=== PATIENT | male | born 1960 | race African-American/Black ===

== ENCOUNTER 2017-01-30 23:06 | Inpatient (IN) | payer OTHER ==
--- NOTE | ~2017-01-30 | HP ---
Unit #: [id number] #: [id number] Patient: BRUCE HIGUERA [id number] [place] [address] [id number] I MR#: [id number] NAME: BRUCE HIGUERA ROOM: [facility] Age: 56 Sex: M Admission Date: 01/30/2017 : 1960 Attending Physician: Reshma Escalante M.D. Admitting Physician: Reshma Escalante M.D. Primary Care Physician: Primary Care Physician No HISTORY AND PHYSICAL HISTORY OF PRESENT ILLNESS Bruce is a 56 year old admitted to [address] [place] [address] with depression and verbalizing wanting to hurt himself. He has had other admissions to this facility for the same. PAST MEDICAL HISTORY 1. Morbid obesity. 2. Diabetes mellitus. 3. High blood pressure. 4. Hypothyroidism. 5. Obstructive sleep apnea. 6. Hyperlipidemia. 7. COPD. PAST SURGICAL HISTORY 1. Left elbow and hand. 2. Bilateral eyes. ALLERGIES Haldol, Prolixin, lactose, lisinopril. SOCIAL HISTORY He denies cigarettes, alcohol and illicit drug use. FAMILY HISTORY Medically noncontributory. REVIEW OF SYSTEMS CONSTITUTIONAL: No fever or chills. HEENT: Denies any sore throat, ear pain or runny nose. CARDIOVASCULAR: Denies chest pain, irregular heart rhythm or palpitations. CHEST: Denies shortness of breath or cough. No hemoptysis. GASTROINTESTINAL: Denies nausea, vomiting, diarrhea or chronic constipation. ENDOCRINE: Denies history of increased thirst or urination. No recent significant weight loss or gain. GENITOURINARY: Denies dysuria, frequency, or hematuria. SKIN: Denies any rashes. HEMATOLOGIC: Denies history of increased bleeding or bruising. MUSCULOSKELETAL: Denies any hot, swollen joints. No generalized muscle pain. NEUROLOGIC: Denies problems with vision or speech. No frequent, severe headaches. No numbness, tingling or weakness in any extremities. Denies Unit #: [id number] #: [id number] Patient: BRUCE HIGUERA loss of bladder or bowel control. CURRENT MEDICATIONS 1. Synthroid 0.188 mg daily. 2. Depakote ER 500 mg q.a.m., 1000 mg q.h.s. 3. Abilify 30 mg daily. 4. Januvia 25 mg q.a.m. 5. Coreg 6.25 mg b.i.d. 6. Zyban SR 150 mg b.i.d. 7. Desyrel p.r.n. 8. Milk of Magnesia p.r.n. 9. Maalox p.r.n. 10. Tylenol p.r.n. PHYSICAL EXAMINATION GENERAL: Alert, morbidly obese, in no apparent distress. VITAL SIGNS: Blood pressure 146/94, heart rate 80, respirations 16, temperature 98.6. WEIGHT: 297. HEIGHT: 6 feet 4 inches. SKIN: Warm and dry without rash or lesion. HEENT: Normocephalic. TMs not viewed. Oral and nasal passages clear. Conjunctivae clear. PERRLA. EOMs intact. NECK: Supple without lymphadenopathy or thyromegaly. HEART: Regular rate and rhythm without murmur. LUNGS: Clear. ABDOMEN: Soft, nontender. : Not done. EXTREMITIES: No evidence of cyanosis, clubbing or edema. Moves all without focal deficit. NEUROLOGICAL: Grossly within normal limits. Cranial Nerves: II: Visual engle are intact. III, IV AND : Extraocular movements are intact. Pupils are equal, round and reactive to light. V: Facial sensation is grossly normal. VII: Facial movements and expression are normal. VIII: Auditory acuity grossly intact. IX, X: Uvula is midline. Phonation is normal. XI: Patient shrugs shoulders and turns head normally. XII: Tongue protrudes in the midline. Sensory and Motor Function: Sensory and motor sensation is grossly normal. Motor: moves all extremities well. Coordination: Gait is normal. Deep Tendon Reflexes: Intact. IMPRESSION Psychiatric admission. RECOMMENDATIONS PSYCHIATRIC: Per psychiatrist. MEDICAL: See no contraindications to participate in facility's activities. MEDICAL PROGNOSIS Good. MEDICAL CONDITION Stable. Unit #: [id number] #: [id number] Patient: BRUCE HIGUERA Dictated by... Fanny Torres P.A.-C. for Nakul Barron/yuliana TD: 01/31/2017 20:01 JOB #: [id number] HISTORY AND PHYSICAL Page 1 of 1 X Fanny Torres HISTORY AND PHYSICAL
--- NOTE | ~2017-01-30 | PN ---
Unit #: [id number] #: [id number] Patient: BRUCE DURANT [id number] [facility] [address] [place] [address] [id number] I MR#: [id number] NAME: BRUCE DURANT ROOM: [facility] Age: 56 Sex: M Admission Date: 01/30/2017 : 1960 Attending Physician: Reshma Escalante M.D. Admitting Physician: Reshma Escalante M.D. Primary Care Physician: Primary Care Physician Lexi CALI PROGRESS NOTES DATE OF SERVICE 02/02/2017 DISCUSSION Ms. Durant is a 56-year-old male who was seen today. Chart was reviewed and case was discussed with the staff. He has been anxious and withdrawn though has not shown any agitation or irritability and has been cooperative with treatment recommendations as he has been taking the medications and tolerating them fairly well with no reported side effects. MENTAL STATUS EXAMINATION Middle-aged male who is casually dressed with fair personal hygiene, appears to be in no acute distress or discomfort. He was awake and alert on interaction with intact orientation. His mood is anxious and depressed with congruent affect. His speech is slow and goal-directed. He denies any suicidal or homicidal ideations and also denies any auditory or visual hallucinations. His insight and judgment remain slightly impaired. TREATMENT PLAN 1. We will continue him on his current medications and treatment protocol. We will monitor his response to the medications and make further adjustments as needed. 2. We will continue to follow up. Dictated by... Nakul Mario/riog TD: 02/02/2017 12:41 JOB #: [id number] Unit #: [id number] #: [id number] Patient: BRUCE DURANT PROGRESS NOTES Page 1 of 1 X Reshma Escalante MD X PROGRESS NOTE
--- NOTE | ~2017-01-30 | PA ---
Unit #: [id number] #: [id number] Patient: BRUCE HIGUERA [id number] [facility] [address] [place] [address] [id number] Reymundo MR#: [id number] NAME: BRUCE HIGUERA ROOM: [facility] Age: 56 Sex: M Admission Date: 01/30/2017 : 1960 Date of Assessment: 01/31/2017 Attending Physician: Reshma Escalante M.D. Admitting Physician: Reshma Escalante M.D. Primary Care Physician: Primary Care Physician No PSYCHIATRIC ASSESSMENT DATE OF SERVICE 01/31/2017. IDENTIFYING DATA Mr. Higuera is a 56-year-old , disabled male who is very well known to us from previous multiple encounters and is a resident of [place], [place] and was self-referred to the hospital on a voluntary basis. CHIEF COMPLAINT "I've been having symptoms with my depression." HISTORY OF PRESENT ILLNESS Mr. Higuera is a 56-year-old male with long history of chronic mental illness, who was self-referred to the hospital. Upon presentation, he stated "I've been having symptoms of my depression. I'm having some irritability. I'm feeling suicidal and I like I'm going to go off and hurt somebody. I've a general feeling that I'm a looser, going to hurt somebody. I'm having constant thoughts of suicide and there is urge to jump in front of vehicle as they are going, as I await on the bus. I've been feeling like this for the last few weeks and is getting worsen, and constantly thinking about being wild and I think someone is doing it wrong or hurting myself and is like a paranoia. I've a fear I feel like I need to protect myself. I've some relationship problems, money problems, and I was going to school. Lately, I've been going through some hris specialist training. I'm supposed to take a test about it. I've a lot of stuff going on and is coming at me too fast. I've been having some symptoms of depression and deep sadness ." The patient does report increasing depression, anxiety, irritability, restlessness, feelings of hopelessness and helplessness, and suicidal ideations, but denies any intent or plan. SUBSTANCE ABUSE HISTORY The patient has had history of inpatient psychiatric hospitalization at [facility] multiple times in addition to being at the [facility] and other facilities and has been diagnosed and treated for schizoaffective disorder and has been receiving outpatient treatment through [facility], and is currently on a combination of psychotropic medications. PAST MEDICAL HISTORY The patient's medical history is significant for diabetes mellitus, glaucoma, hypothyroidism, sleep apnea, chronic back and knee pain. Unit #: [id number] #: [id number] Patient: BRUCE HIGUERA ALLERGIES Prolixin, Haldol, lactulose, and lisinopril. PERSONAL AND SOCIAL HISTORY A 56-year-old male who reports that he is single, unemployed, disabled, and lives alone and has poor social support system. MENTAL STATUS EXAMINATION Middle-aged male who was casually dressed with fair personal hygiene, appears to be in no acute distress or discomfort. He was awake and alert on interaction with intact orientation to time, place, and person. His mood was anxious and depressed with a congruent affect. His speech was slow and goal directed. His thought processes were disorganized with some looseness of associations and flight of ideas and suicidal ideations. His insight and judgment remain significantly impaired. DIAGNOSTIC IMPRESSION Psychiatric: Schizoaffective disorder, bipolar type; most recent episode depressed, recurrent, moderate, with psychosis. Medical: Glaucoma, diabetes mellitus, hypothyroidism, sleep apnea, chronic back and knee pain. Stressors: Moderate psychosocial stressors. TREATMENT PLAN 1. The patient has presented with history of mood disorder and has been decompensating and will need inpatient hospitalization for safety and stabilization. We will start him back on his home medications. We will adjust the medications and monitor response. 2. Supportive therapy was provided to the patient. 3. Safe, structured, and nourishing environment will be provided. ESTIMATED LENGTH OF STAY 5 days. ABILITY TO HELP SELF Limited. WILLINGNESS TO HELP SELF The patient appears to be willing to help self. STRENGTHS 1. Communicative. 2. Cooperative. PROBLEMS 1. Chronic dysphoric symptoms. 2. Poor social support system. DISCHARGE CRITERIA This will be contingent upon the patient's ability to show resolution of his depression and anxiety and his ability to stay safe to himself, particularly after discharge from the hospital. Dictated by... Reshma Escalante M.D. Unit #: [id number] #: [id number] Patient: BRUCE HIGUERA DIANA/kedarl TD: 01/31/2017 08:48 JOB #: [id number] PSYCHIATRIC ASSESSMENT Page 1 of 1 X Reshma Escalante MD X PSYCHIATRIC ASSESSMENT
--- NOTE | ~2017-01-30 | DS ---
Unit #: [id number] #: [id number] Patient: BRUCE DURANT [id number] [facility] [address] [place] [address] [id number] I MR#: [id number] NAME: BRUCE DURANT ROOM: [facility] Age: 56 Sex: M Admission Date: 01/30/2017 : 1960 Discharge Date: 02/06/2017 Attending Physician: Reshma Escalante M.D. Primary Care Physician: Primary Care Physician No DISCHARGE SUMMARY IDENTIFYING DATA Mr. Durant is a 56-year-old , disabled, male who is very well known to us from previous multiple encounters and is a resident of [place], [place] and was self-referred to the hospital on a voluntary basis. DISCHARGE DIAGNOSES Psychiatric: Schizoaffective disorder, bipolar type, most recent episode depressed, recurrent, moderate, with psychosis. Medical: Glaucoma, diabetes mellitus, hypothyroidism, sleep apnea, chronic back and knee pain. Stressors: Moderate psychosocial stressors. HISTORY OF PRESENT ILLNESS Please see initial psychiatric evaluation for details. PAST PSYCHIATRIC HISTORY Please see initial psychiatric evaluation for details. PAST MEDICAL HISTORY Please see initial psychiatric evaluation for details. HOSPITAL COURSE The patient was admitted to the adult psychiatric unit at [facility] and was oriented to the hospital environment. Routine p.r.n. medications were initiated and started back on his home medications and was closely monitored. No medications adjustments were made and he was just enrolled in therapy groups as he already has been on combination of psychotropic medication on higher doses and just maintaining the medication and keeping safe and structured environment providing supportive therapy did help him significant improvement in his depressive symptoms and he was then denying any further suicidal ideations, intent, or plan and was willing to come to the outpatient treatment program and as such, it was decided that he will be discharged home and will continue treatment on an outpatient basis. DISCHARGE MEDICATIONS Wellbutrin SR 150 mg b.i.d. for depression, Abilify 30 mg a day for bipolar, Depakote 500 mg in the morning and 1000 mg at bedtime for bipolar, Synthroid 0.188 mg for hypothyroidism, Coreg 6.25 mg b.i.d. for coronary artery disease, and Januvia 25 mg a day. DISCHARGE CONDITION Stable. Unit #: [id number] #: [id number] Patient: DURANT,BRUCE PROGNOSIS Fair. Dictated by... Nakul Mario/vero TD: 02/06/2017 21:09 JOB #: [id number] DISCHARGE SUMMARY Page 1 of 1 X Reshma Escalante MD X DISCHARGE SUMMARY
--- NOTE | ~2017-01-30 | PN ---
Unit #: [id number] #: [id number] Patient: BRUCE DURANT [id number] [facility] [address] [place] [address] [id number] I MR#: [id number] NAME: BRUCE DURANT ROOM: [facility] Age: 56 Sex: M Admission Date: 01/30/2017 : 1960 Attending Physician: Reshma Escalante M.D. Admitting Physician: Reshma Escalante M.D. Primary Care Physician: Primary Care Physician Lexi CALI PROGRESS NOTES DATE 02/01/2017 DISCUSSION Mr. Durant is a 56-year-old, male who was seen today and chart was reviewed and case was discussed with the staff. He remains rather anxious, withdrawn, disorganized and seclusive to himself. Meanwhile, he has been compliant with the treatment recommendations. He has been taking medications and tolerating them fairly well with no reported side effects. MENTAL STATUS EXAM Middle-aged male who was casually dressed with fair personal hygiene, appears to be in no acute distress or discomfort. He was awake and alert on interaction with intact orientation. His mood was anxious with congruent affect. His speech was slow and restricted in content. His thought processes is disorganized with some looseness of associations. His insight and judgement remains . TREATMENT PLAN 1. We will continue him on his current medications and treatment protocol. We will monitor his response to the medication and make further adjustments as needed. 2. We will continue to follow up. Dictated by... Nakul Mario/ezequiel TD: 02/02/2017 02:04 JOB #: [id number] Unit #: [id number] #: [id number] Patient: BRUCE DURANT PROGRESS NOTES Page 1 of 1 X Reshma Escalante MD PROGRESS NOTE
--- NOTE | ~2017-01-30 | PN ---
Unit #: [id number] #: [id number] Patient: BRUCE DURANT [id number] [facility] [address] [place] [address] [id number] I MR#: [id number] NAME: BRUCE DURANT ROOM: [facility] Age: 56 Sex: M Admission Date: 01/30/2017 : 1960 Attending Physician: Reshma Escalante M.D. Admitting Physician: Reshma Escalante M.D. Primary Care Physician: Primary Care Physician Lexi CALI PROGRESS NOTES DATE 02/04/2017 DISCUSSION Mr. Durant is a 56-year-old, male who was seen today and chart was reviewed and case was discussed with the staff. He has been anxious, withdrawn though does not show any agitation, irritability, Meanwhile, he has been cooperative with treatment recommendations and has been taking the medication and tolerating them fairly well with no reported side effects. MENTAL STATUS EXAM Middle-aged male who was casually dressed with fair personal hygiene, appears to be in no acute distress or discomfort. He was awake and alert on interaction with intact orientation. His mood was anxious and depressed with congruent affect. He denies any suicidal or homicidal ideation. His insight and judgement remains slightly impaired. TREATMENT PLAN 1. We will continue him on his current medications and treatment protocol. We will monitor his response to medication and make further adjustments as needed. 2. We will continue to follow up. Dictated by... Nakul Mario/ezequiel TD: 02/06/2017 03:02 JOB #: [id number] Unit #: [id number] #: [id number] Patient: BRUCE DURANT PROGRESS NOTES Page 1 of 1 X Reshma Escalante MD PROGRESS NOTE
--- NOTE | ~2017-01-30 | PN ---
Unit #: [id number] #: [id number] Patient: BRUCE HIGUERA [id number] [facility] [address] [place] [address] [id number] I MR#: [id number] NAME: BRUCE HIGUERA ROOM: [facility] Age: 56 Sex: M Admission Date: 01/30/2017 : 1960 Attending Physician: Reshma Escalante M.D. Admitting Physician: Nakul Mario PROGRESS NOTES DATE OF SERVICE: 02/03/2017 SUBJECTIVE Mr. Higuera is a 56-year-old male, who was seen today and chart was reviewed and the case was discussed with the staff. He has been anxious and withdrawn, though has not shown any agitation or aggression. Meanwhile, he has been taking the medications and tolerating them fairly well with no reported side effects. MENTAL STATUS EXAMINATION Middle-aged male, who was casually dressed with a fair personal hygiene, appears to be in no acute distress or discomfort. He was awake and alert on interaction with intact orientation. His mood was anxious with a congruent affect. His speech was slow. No suicidal or homicidal ideations. His insight and judgment remain slightly impaired. TREATMENT PLAN 1. We will continue him on his current medications and treatment protocol. We will monitor his response to medications and make further adjustments as needed. 2. We will continue to follow up. Dictated by... Reshma Escalante M.D. DIANA/vero TD: 02/03/2017 11:51 JOB #: [id number] [facility] PROGRESS NOTES Page 1 of 1 X Reshma Escalante MD PROGRESS NOTE
--- NOTE | ~2017-01-30 | PN ---
Unit #: [id number] #: [id number] Patient: BRUCE DURANT [id number] [facility] [address] [place] [address] [id number] MR#: [id number] NAME: BRUCE DURANT ROOM: [facility] Age: 56 Sex: M Admission Date: 01/30/2017 : 1960 Attending Physician: Reshma Escalante M.D. Admitting Physician: Reshma Escalante M.D. Primary Care Physician: Primary Care Physician Lexi CALI PROGRESS NOTES DATE OF SERVICE: 02/05/2017 SUBJECTIVE Mr. Durant is a 52-year-old male who was seen today and chart was reviewed, and case was discussed with the staff. He has been doing fairly well and has been showing improvement in his mood, depression, and anxiety and has been functioning well and has been going to therapy groups and participating. MENTAL STATUS EXAMINATION Middle-aged male who was casually dressed with a fair personal hygiene and appears to be in no acute distress or discomfort. He was awake and alert on interaction with intact orientation. His mood was anxious and depressed with a congruent affect. He denies any current suicidal or homicidal ideations, and also denies any auditory or visual hallucinations. His insight and judgment remain slightly impaired. TREATMENT PLAN 1. We will continue him on his current medications and treatment protocol. We will monitor his response and make further adjustments as needed. 2. We will continue to follow up. Dictated by... Nakul Mario/kedarl TD: 02/07/2017 06:59 JOB #: [id number] [facility] PROGRESS NOTES Page 1 of 1 X Reshma Escalante MD PROGRESS NOTE
[2017-01-31 09:51] LABS: BASOPHIL% 0.5 % (0-2.5); EOSINOPHIL% 0.9 % (0.0-7.0); HEMATOCRIT 44.3 % (38.0-50.0); HEMOGLOBIN 14.6 gm/dL (13.0-16.0); LYMPHOCYTE# 3.6 X10e3 (1.0-3.5); LYMPHOCYTE% 69.1 % (17.0-45.0); MEAN CELL VOLUME 90.2 FL (83-96); MEAN CORPUSCULAR HEMOGLOBIN 29.8 PG (28-34); MEAN CORPUSCULAR HGB CONC 33.1 g/dL (30-36); MEAN PLATELET VOLUME 8.4 FL (6.5-11.5); MONOCYTE# 0.6 X10e3 (0-1.0); NEUTROPHIL% 18.5 % (40-75); PLATELET COUNT 150 X10e3 (140-420); RED BLOOD COUNT 4.91 X10e (3.90-5.60); RED CELL DISTRIBUTION WIDTH 13.9 % (11.0-15.5); WHITE BLOOD COUNT 5.3 X10e3 (4.0-10.5)
[2017-01-31 09:52] LABS: DIFF IND YES
[2017-01-31 10:08] LABS: THYROID STIMULATING HORMONE 4.98 uIU/ml (0.34-5.60)
[2017-01-31 10:14] LABS: ALKALINE PHOSPHATASE 86 U/L (32-92); ALT (SGPT) 20 U/L (10-40); AST (SGOT) 17 U/L (10-42); BILIRUBIN,TOTAL 0.8 mg/dL (0.2-2.0); BLOOD UREA NITROGEN 19 mg/dL (9-23); BUN/CREATININE RATIO 17.27; CALCIUM SERUM 9.6 mg/dL (8.4-10.2); CARBON DIOXIDE 30 mmol/L (22-31); CHLORIDE 102 mmol/L (100-111); CREATININE SERUM 1.1 mg/dL (0.6-1.4); GLOM FILT RATE Estimated ABOVE60 mL/min (>60); GLUCOSE FASTING 80 mg/dL (70-110); POTASSIUM 4.3 mmol/L (3.5-5.1); PROTEIN TOTAL SERUM 7.7 g/dL (6.0-8.3); SODIUM 138 mmol/L (135-145)
[2017-01-31 10:15] LABS: FREE THYROXIN (T4) 0.89 ng/dL (0.58-1.64)
[2017-01-31 10:17] LABS: PLATELET ESTIMATE NORMAL (NORMAL); RBC NORMAL YES
[2017-02-06 09:28] LABS: URINE APPEARANCE CLEAR; URINE BILIRUBIN NEG (NEG); URINE BLOOD NEG (NEG); URINE COLOR YELLOW; URINE GLUCOSE NEG (NEG); URINE KETONE TRACE (NEG); URINE LEUKOCYTE ESTERASE TRACE (NEG); URINE NITRATE NEG (NEG); URINE PH 7.5 (5-8); URINE PROTEIN NEG (NEG); URINE SPECIFIC GRAVITY 1.021 (1.003-1.035)
[2017-02-06 09:33] LABS: URBCS1 AUWI 0-2 /[HPF] (0-2); URINE BACTERIA AUWI NEG (NEGATIVE); URINE SQUAMOUS EPITHELIAL CELL NONE SEEN /[HPF]; UWBCS1 AUWI 0-2 (0-5)
[2017-02-06 10:10] LABS: AMPHETAMINE NEG (NEG); BARBITURATES NEG (NEG); BENZODIAZEPINES NEG (NEG); COCAINE NEG (NEG); MARIJUANA NEG (NEG); OPIATES NEG (NEG); TRICYCLIC ANTIDEPRESSANTS NEG (NEG); U METHADONE NEG (NEG)
== END 2017-02-06 14:15 | disposition home or self-care (01) | DRG 885 ==
LOC: P2L 23:06
PROVIDERS: Psychiatry & Neurology Psychiatry
DX: F25.0 Schizoaffective disorder, bipolar type (principal); E66.01 Morbid (severe) obesity due to excess calories; F31.32 Bipolar disorder, current episode depressed, moderate; F29 Unspecified psychosis not due to a substance or known physiological condition; H40.9 Unspecified glaucoma; E11.9 Type 2 diabetes mellitus without complications; E03.9 Hypothyroidism, unspecified; G47.33 Obstructive sleep apnea (adult) (pediatric); G89.29 Other chronic pain; M54.9 Dorsalgia, unspecified; M25.569 Pain in unspecified knee; F41.9 Anxiety disorder, unspecified; E78.5 Hyperlipidemia, unspecified; J44.9 Chronic obstructive pulmonary disease, unspecified
CPT/HCPCS: 80053; 80307; 81003; 82947; 84439; 84443; 85025